=== PATIENT | male | born 2000 | race African-American/Black ===

== ENCOUNTER 2024-07-27 00:11 | Emergency (ER) | payer OTHER ==
[~2024-07-27] VITALS: Ht 180.3 cm; Wt 100.0 kg
[2024-07-27 05:14] VITALS: TEMP 97.7
[2024-07-27 06:30] VITALS: BP 116/64
[2024-07-27 06:41] VITALS: O2SAT 98
[2024-07-27] MEDS: IBUPROFEN 600MG TAB PO ONE (06:44)
== END 2024-07-27 07:08 | disposition home or self-care (01) ==
LOC: M ED 00:11
DX: S83.91XA Sprain of unspecified site of right knee, initial encounter (principal); S93.431A Sprain of tibiofibular ligament of right ankle, initial encounter; Y92.9 Unspecified place or not applicable; Y93.23 Activity, snow (alpine) (downhill) skiing, snowboarding, sledding, tobogganing and snow tubing; Y99.9 Unspecified external cause status